=== PATIENT | female | born 1985 | race Hispanic/Latino ===

== ENCOUNTER 2017-10-13 17:13 | Emergency (ER) | payer SELFPAY ==
[2017-10-13 17:46] LABS: BASOPHILS % (AUTO) 0.5 % (0.0-5.0); HEMATOCRIT 42.4 % (36-48); LYMPHOCYTES % (AUTO) 15.6 % (21.0-51.0); MEAN CORPUSCULAR HEMOGLOBIN 28.8 pg (27.0-33.0); MEAN CORPUSCULAR HGB CONC 33.8 g/dL (32.0-36.0); MEAN CORPUSCULAR VOLUME 85.1 fL (79-99); NEUTROPHILS % (AUTO) 76.9 % (40.0-77.0); PLATELET COUNT (AUTO) 305 K/uL (130-400); RED BLOOD CELL COUNT(AUTO) 4.98 MIL/uL (4.00-5.50); RED CELL DISTRIBUTION WIDTH 13.6 % (11.0-15.5); WHITE BLOOD COUNT (AUTO) 13.9 K/uL (4.8-10.8)
[2017-10-13 17:46] LABS: APPEARANCE,URINE Clear (CLEAR); BILIRUBIN,URINE Small (NEGATIVE); COLOR,URINE Dark Yellow (YELLOW); GLUCOSE, URINE (UA) Negative (NEGATIVE); KETONES,URINE >=80 mg/dL (NEGATIVE); LEUKOCYTE ESTERASE ,URINE Trace (NEGATIVE); NITRATE,URINE Negative (NEGATIVE); OCCULT BLOOD,URINE Negative (NEGATIVE); PROTEIN,URINE POS 1+ (NEGATIVE)
[2017-10-13 17:47] LABS: HCG,QUAL RESULT NEGATIVE (NEGATIVE)
[2017-10-13] MEDS ORDERED: ONDANSETRON HCL 4 MG/2 ML VIAL ONE (17:49)
[2017-10-13] MEDS ORDERED: DICYCLOMINE HCL 10 MG/ML 2ML AMP IM ONE (17:49)
[2017-10-13] MEDS ORDERED: KETOROLAC TROMETHAMINE 30MG/ML ONE (17:50)
[2017-10-13 17:55] LABS: CREATININE 0.8 mg/dL (0.5-1.5); POTASSIUM 3.7 mmol/L (3.5-5.1)
[2017-10-13 18:01] LABS: ALBUMIN 4.1 g/dL (3.5-5.0); BILIRUBIN,TOTAL 0.7 mg/dL (0.2-1.0); TOTAL PROTEIN, SERUM 9.2 g/dL (6.0-8.3)
[2017-10-13 18:02] LABS: BACTERIA,URINE Few /HPF (None Seen); MUCUS,URINE Few LPF (None Seen); RBC,URINE None Seen /HPF (0-1)
[2017-10-13] MEDS ORDERED: LIDOCAINE HCL 2% VISCOUS 15 ML UDCUP ONE (19:03)
[2017-10-13] MEDS ORDERED: MAG HYDROX/AL HYDROX/SIMETH ES 30 ML SUSP UDCUP ONE (19:03)
[2017-10-13] MEDS ORDERED: IOHEXOL-350 75 ML VIAL IV ONE (19:42)
== END 2017-10-13 21:13 | disposition home or self-care (01) ==
LOC: EDH 17:13
DX: K29.00 Acute gastritis without bleeding (principal); E11.9 Type 2 diabetes mellitus without complications; Z72.0 Tobacco use
CPT/HCPCS: 36415; 74177; 76705; 80053; 81001; 81025; 82948; 83690; 85025; 87804 ×2; 96372; 96374; 96375; 99285; J0500; J1885; J2405; Q9967

== ENCOUNTER 2018-06-17 13:50 | Inpatient (IN) | payer OTHER ==
[~2018-06-17] VITALS: Ht 167.6 cm; Wt 107.1 kg
[2018-06-17 14:22] LABS: BASOPHILS % (AUTO) 0.3 % (0.0-5.0); HEMATOCRIT 39.8 % (36-48); LYMPHOCYTES % (AUTO) 3.8 % (21.0-51.0); MEAN CORPUSCULAR HEMOGLOBIN 29.1 pg (27.0-33.0); MEAN CORPUSCULAR HGB CONC 34.1 g/dL (32.0-36.0); MEAN CORPUSCULAR VOLUME 85.4 fL (79-99); MONOCYTES % (AUTO) 7.8 % (3.0-13.0); NEUTROPHILS % (AUTO) 88.1 % (40.0-77.0); PLATELET COUNT (AUTO) 186 K/uL (130-400); RED BLOOD CELL COUNT(AUTO) 4.65 MIL/uL (4.00-5.50); WHITE BLOOD COUNT (AUTO) 13.1 K/uL (4.8-10.8)
[2018-06-17] MEDS ORDERED: SODIUM CHLORIDE 0.9% 1000ML 2,000 ML IV ONE (14:25)
[2018-06-17 14:39] LABS: ALBUMIN 3.1 g/dL (3.5-5.0); BILIRUBIN,DIRECT 0.3 mg/dL (0.0-0.3); BILIRUBIN,TOTAL 0.8 mg/dL (0.2-1.0); CREATININE 1.7 mg/dL (0.5-1.5); POTASSIUM 3.6 mmol/L (3.5-5.1); TOTAL PROTEIN, SERUM 8.7 g/dL (6.0-8.3)
[2018-06-17] MEDS ORDERED: SODIUM CHLORIDE 0.9% 100 ML IV ONE (14:41)
[2018-06-17 14:57] LABS: BILIRUBIN,URINE Negative (NEGATIVE); COLOR,URINE Dark Yellow (YELLOW); GLUCOSE, URINE (UA) >=1000 mg/dL (NEGATIVE); KETONES,URINE >=80 mg/dL (NEGATIVE); LEUKOCYTE ESTERASE ,URINE Small (NEGATIVE); NITRATE,URINE Negative (NEGATIVE); OCCULT BLOOD,URINE Moderate (NEGATIVE); PROTEIN,URINE POS 2+ (NEGATIVE)
[2018-06-17 14:58] LABS: HCG,QUAL RESULT NEGATIVE (NEGATIVE)
[2018-06-17 14:59] LABS: APPEARANCE,URINE Turbid (CLEAR)
[2018-06-17 15:17] LABS: BACTERIA,URINE Moderate /HPF (None Seen); MUCUS,URINE Moderate LPF (None Seen); SQUAMOUS EPITHELIAL CELL,UR 30-50 /HPF (0-2); TRANSITIONAL EPI CELLS,URINE Few /HPF (None Seen); WBC,URINE 26-50 /HPF (0-1)
[2018-06-17] MEDS ORDERED: SODIUM CHLORIDE 0.9% 1000ML 1,000 ML IV ONE ×3 (16:04→23:32)
[2018-06-17] MEDS ORDERED: INSULIN HUMULIN R 100 UNIT/ML 3ML ONE ×3 (16:05→23:47)
[2018-06-17] MEDS ORDERED: ONDANSETRON HCL 4 MG/2 ML VIAL ONE (16:18)
[2018-06-17] MEDS ORDERED: ENOXAPARIN SODIUM 30 MG/0.3 ML SQ SCH (16:34)
[2018-06-17] MEDS ORDERED: ONDANSETRON HCL 4 MG/2 ML VIAL IVP PRN (16:45)
[2018-06-17] MEDS ORDERED: ACETAMINOPHEN EXTRA STRENGTH 500 MG TABLET ONE (16:45)
[2018-06-17] MEDS ORDERED: CEFTRIAXONE SODIUM 2 GM VIAL IVP SCH (17:00)
[2018-06-17] MEDS ORDERED: IBUPROFEN 600 MG TABLET ONE (17:59)
[2018-06-17] MEDS: FAMOTIDINE/PF 20 MG/2 ML VIAL IV SCH (21:00)
[2018-06-17] MEDS ORDERED: FAMOTIDINE/PF 20 MG/2 ML VIAL IV ONE (23:55)
[2018-06-17] MEDS ORDERED: ENOXAPARIN SODIUM 30 MG/0.3 ML SQ ONE (23:55)
[2018-06-18] MEDS ORDERED: ACETAMINOPHEN 325 MG TAB ONE ×2 (06:22→11:58)
[2018-06-18 06:44] LABS: BASOPHILS % (AUTO) 0.3 % (0.0-5.0); EOSINOPHILS % (AUTO) 0.1 % (0.0-8.0); HEMATOCRIT 33.6 % (36-48); LYMPHOCYTES % (AUTO) 4.6 % (21.0-51.0); MEAN CORPUSCULAR HEMOGLOBIN 29.1 pg (27.0-33.0); MEAN CORPUSCULAR HGB CONC 34.1 g/dL (32.0-36.0); MEAN CORPUSCULAR VOLUME 85.4 fL (79-99); MONOCYTES % (AUTO) 8.6 % (3.0-13.0); NEUTROPHILS % (AUTO) 86.4 % (40.0-77.0); PLATELET COUNT (AUTO) 157 K/uL (130-400); RED BLOOD CELL COUNT(AUTO) 3.94 MIL/uL (4.00-5.50); RED CELL DISTRIBUTION WIDTH 14.1 % (11.0-15.5); WHITE BLOOD COUNT (AUTO) 10.3 K/uL (4.8-10.8)
[2018-06-18 06:59] LABS: CREATININE 1.2 mg/dL (0.5-1.5); POTASSIUM 3.3 mmol/L (3.5-5.1)
[2018-06-18 07:05] LABS: ALBUMIN 2.3 g/dL (3.5-5.0); BILIRUBIN,TOTAL 0.5 mg/dL (0.2-1.0); TOTAL PROTEIN, SERUM 7.1 g/dL (6.0-8.3)
[2018-06-18] MEDS: INSULIN HUMULIN R 100 UNIT/ML 3ML SQ SCH ×4 (07:30→21:10)
[2018-06-18] MEDS ORDERED: INSULIN HUMULIN R 100 UNIT/ML 3ML ONE (08:30)
[2018-06-18] MEDS ORDERED: FAMOTIDINE/PF 20 MG/2 ML VIAL IV ONE (11:39)
[2018-06-18 14:29] VITALS: BP 128/62
[2018-06-18] MEDS: SODIUM CHLORIDE 0.9% 1000ML 1,000 ML IV SCH ×2 (15:57→23:29)
[2018-06-18] MEDS: FAMOTIDINE/PF 20 MG/2 ML VIAL IV SCH ×2 (15:58→19:47)
[2018-06-18 16:26] VITALS: BP 112/64
[2018-06-18] MEDS ORDERED: CEFTRIAXONE SODIUM 1 GM IVP SCH ×2 (16:45→21:00)
[2018-06-18] MEDS ORDERED: POTASSIUM CHLORIDE 20MEQ/100ML 100 ML IV PRN ×2 (17:15)
[2018-06-18] MEDS ORDERED: POTASSIUM CHLORIDE 10% ELIXIR 20 MEQ/15 ML UDCUP PO PRN (17:15)
[2018-06-18] MEDS ORDERED: LIDOCAINE HCL-MPF 1% 2ML VIAL IVP PRN ×2 (17:15)
[2018-06-18] MEDS: POTASSIUM CHLORIDE 20 MEQ ERTAB PO PRN ×2 (17:59→20:01)
[2018-06-18 19:45] VITALS: BP 120/52
[2018-06-18] MEDS: ENOXAPARIN SODIUM 30 MG/0.3 ML SQ SCH (19:47)
[2018-06-18] MEDS: ACETAMINOPHEN 325 MG TAB PO PRN (20:01)
[2018-06-18] MEDS: INSULIN GLARGINE 100 UNITS/ML 10 ML VIAL SQ SCH (21:09)
[2018-06-18 23:15] VITALS: BP 116/54
[2018-06-19 03:58] VITALS: BP 110/62
[2018-06-19 04:40] LABS: HEMATOCRIT 31.2 % (36-48); MEAN CORPUSCULAR HEMOGLOBIN 30.1 pg (27.0-33.0); MEAN CORPUSCULAR HGB CONC 35.5 g/dL (32.0-36.0); MEAN CORPUSCULAR VOLUME 84.8 fL (79-99); PLATELET COUNT (AUTO) 150 K/uL (130-400); RED BLOOD CELL COUNT(AUTO) 3.68 MIL/uL (4.00-5.50); RED CELL DISTRIBUTION WIDTH 13.8 % (11.0-15.5); WHITE BLOOD COUNT (AUTO) 5.9 K/uL (4.8-10.8)
[2018-06-19 05:03] LABS: CREATININE 0.9 mg/dL (0.5-1.5); MAGNESIUM 1.8 mg/dL (1.80-2.40); PHOSPHORUS 1.7 mg/dL (2.5-4.9); POTASSIUM 3.3 mmol/L (3.5-5.1)
[2018-06-19] MEDS: SODIUM CHLORIDE 0.9% 1000ML 1,000 ML IV SCH ×3 (05:45→21:13)
[2018-06-19] MEDS: INSULIN HUMULIN R 100 UNIT/ML 3ML SQ SCH ×4 (06:00→20:52)
[2018-06-19] MEDS: POTASSIUM CHLORIDE 20 MEQ ERTAB PO PRN ×2 (06:19→10:10)
[2018-06-19 08:20] VITALS: BP 130/70
[2018-06-19 10:03] LABS: HEMOGLOBIN A1C 11.6 % (4.0-6.0)
[2018-06-19] MEDS: FAMOTIDINE/PF 20 MG/2 ML VIAL IV SCH ×2 (10:09→21:13)
[2018-06-19] MEDS: INSULIN LISPRO 100 UNIT/ML 3ML SQ SCH ×3 (10:09→18:19)
[2018-06-19] MEDS: ENOXAPARIN SODIUM 30 MG/0.3 ML SQ SCH (10:11)
[2018-06-19] MEDS: ACETAMINOPHEN 325 MG TAB PO PRN ×2 (10:14→18:22)
[2018-06-19] MEDS: CEFTRIAXONE SODIUM 1 GM IVP SCH ×2 (10:14→21:13)
[2018-06-19] MEDS: MAGNESIUM 2GM PREMIX 50ML 50 ML IV SCH (10:15)
[2018-06-19 11:59] VITALS: BP 135/75
[2018-06-19] MEDS: METRONIDAZOLE 500 MG TABLET PO SCH ×3 (13:00→18:23)
--- NOTE | 2018-06-19 13:45 | NUR ---
DCP CM met with pt discussed dc plans. Pt is independent prior to admission, lives at home w/mother. Denies any equipments/services. Pt feels safe to go back home, still drives and works, mother able to assist with transportation and needs as necessary. Pt is a self pay, C assisting, insurance covers only Dr's visits, given community resources. DC plan to home once stable. CM to cont to follow up. Addendum: 06/19/18 at 1349 by FATMATA CHAVEZ LVN CM Amended: Links added.
[2018-06-19] MEDS ORDERED: POTASSIUM CHLORIDE 20 MEQ ERTAB PO ONE ×2 (14:00→18:00)
[2018-06-19 16:23] VITALS: BP 135/83
[2018-06-19 20:14] VITALS: BP 139/82
[2018-06-19] MEDS: INSULIN GLARGINE 100 UNITS/ML 10 ML VIAL SQ SCH (21:19)
[2018-06-19 23:30] VITALS: BP 123/74
[2018-06-20] MEDS: METRONIDAZOLE 500 MG TABLET PO SCH ×4 (00:45→18:50)
[2018-06-20 03:50] VITALS: BP 129/85
[2018-06-20 05:00] LABS: MEAN CORPUSCULAR HEMOGLOBIN 28.9 pg (27.0-33.0); MEAN CORPUSCULAR HGB CONC 34.1 g/dL (32.0-36.0); MEAN CORPUSCULAR VOLUME 84.9 fL (79-99); PLATELET COUNT (AUTO) 179 K/uL (130-400); RED BLOOD CELL COUNT(AUTO) 3.65 MIL/uL (4.00-5.50); RED CELL DISTRIBUTION WIDTH 14.2 % (11.0-15.5); WHITE BLOOD COUNT (AUTO) 5.6 K/uL (4.8-10.8)
[2018-06-20 05:05] LABS: CREATININE 0.8 mg/dL (0.5-1.5); MAGNESIUM 1.6 mg/dL (1.80-2.40); POTASSIUM 3.9 mmol/L (3.5-5.1)
[2018-06-20] MEDS: SODIUM CHLORIDE 0.9% 1000ML 1,000 ML IV SCH ×3 (06:20→15:46)
[2018-06-20] MEDS: ACETAMINOPHEN 325 MG TAB PO PRN ×2 (06:25→18:51)
[2018-06-20] MEDS: INSULIN LISPRO 100 UNIT/ML 3ML SQ SCH ×3 (06:28→17:00)
[2018-06-20] MEDS: INSULIN HUMULIN R 100 UNIT/ML 3ML SQ SCH ×4 (06:29→21:00)
[2018-06-20 08:03] VITALS: BP 134/77
[2018-06-20] MEDS: FAMOTIDINE/PF 20 MG/2 ML VIAL IV SCH ×2 (10:26→21:02)
[2018-06-20] MEDS: CEFTRIAXONE SODIUM 1 GM IVP SCH (10:26)
[2018-06-20] MEDS: ENOXAPARIN SODIUM 30 MG/0.3 ML SQ SCH (10:27)
[2018-06-20] MEDS: MAGNESIUM 2GM PREMIX 50ML 50 ML IV SCH (10:27)
[2018-06-20 11:23] VITALS: BP 125/70
[2018-06-20] MEDS ORDERED: MEROPENEM 500 MG VIAL IVP SCH (15:15)
[2018-06-20] MEDS ORDERED: CEFAZOLIN SODIUM 1 GM VIAL IVP SCH (15:30)
[2018-06-20 16:44] VITALS: BP 150/100
[2018-06-20] MEDS: DOXYCYCLINE 100MG+NS 250ML 250 ML IV SCH (18:50)
[2018-06-20 18:51] VITALS: BP 137/77
[2018-06-20] MEDS: INSULIN GLARGINE 100 UNITS/ML 10 ML VIAL SQ SCH (21:09)
[2018-06-21] VITALS: BP 118/83
[2018-06-21] MEDS: METRONIDAZOLE 500 MG TABLET PO SCH ×3 (00:12→13:06)
[2018-06-21 04:00] VITALS: BP 134/94
[2018-06-21 04:40] LABS: BASOPHILS % (AUTO) 0.5 % (0.0-5.0); EOSINOPHILS % (AUTO) 0.6 % (0.0-8.0); HEMATOCRIT 31.8 % (36-48); LYMPHOCYTES % (AUTO) 18.1 % (21.0-51.0); MEAN CORPUSCULAR HEMOGLOBIN 28.8 pg (27.0-33.0); MEAN CORPUSCULAR HGB CONC 34.2 g/dL (32.0-36.0); MEAN CORPUSCULAR VOLUME 84.4 fL (79-99); MONOCYTES % (AUTO) 24.1 % (3.0-13.0); NEUTROPHILS % (AUTO) 56.7 % (40.0-77.0); PLATELET COUNT (AUTO) 213 K/uL (130-400); RED BLOOD CELL COUNT(AUTO) 3.77 MIL/uL (4.00-5.50); RED CELL DISTRIBUTION WIDTH 14.2 % (11.0-15.5); WHITE BLOOD COUNT (AUTO) 6.2 K/uL (4.8-10.8)
[2018-06-21 04:54] LABS: CREATININE 0.8 mg/dL (0.5-1.5); MAGNESIUM 1.4 mg/dL (1.80-2.40); POTASSIUM 3.2 mmol/L (3.5-5.1)
[2018-06-21] MEDS: SODIUM CHLORIDE 0.9% 1000ML 1,000 ML IV SCH ×3 (05:52→18:35)
[2018-06-21] MEDS: DOXYCYCLINE 100MG+NS 250ML 250 ML IV SCH (05:53)
[2018-06-21] MEDS: CEFTRIAXONE SODIUM 1 GM IVP SCH (05:53)
[2018-06-21] MEDS: INSULIN HUMULIN R 100 UNIT/ML 3ML SQ SCH ×4 (05:58→21:00)
[2018-06-21] MEDS: INSULIN LISPRO 100 UNIT/ML 3ML SQ SCH ×3 (06:03→17:00)
[2018-06-21 08:00] VITALS: BP 149/72
[2018-06-21] MEDS: FAMOTIDINE/PF 20 MG/2 ML VIAL IV SCH (10:55)
[2018-06-21] MEDS: OSELTAMIVIR PHOSPHATE 75 MG CAP PO SCH (10:55)
[2018-06-21] MEDS: ENOXAPARIN SODIUM 30 MG/0.3 ML SQ SCH (10:56)
[2018-06-21] MEDS: MAGNESIUM 2GM PREMIX 50ML 50 ML IV SCH (10:56)
[2018-06-21] MEDS: POTASSIUM CHLORIDE 20 MEQ ERTAB PO PRN ×3 (10:57→17:02)
[2018-06-21 11:36] VITALS: BP 138/86
[2018-06-21 16:00] VITALS: BP 138/90
[2018-06-21 20:00] VITALS: BP 141/94
[2018-06-22 00:10] VITALS: BP 142/83
[2018-06-22] MEDS: METRONIDAZOLE 500 MG TABLET PO SCH ×3 (00:36→13:00)
[2018-06-22] MEDS: FAMOTIDINE/PF 20 MG/2 ML VIAL IV SCH ×2 (00:36→08:50)
[2018-06-22] MEDS: OSELTAMIVIR PHOSPHATE 75 MG CAP PO SCH ×2 (00:37→08:50)
[2018-06-22] MEDS: INSULIN GLARGINE 100 UNITS/ML 10 ML VIAL SQ SCH (00:44)
[2018-06-22] MEDS: SODIUM CHLORIDE 0.9% 1000ML 1,000 ML IV SCH ×2 (00:56→05:31)
[2018-06-22 04:00] VITALS: BP 139/87
[2018-06-22 04:54] LABS: BASOPHILS % (AUTO) 0.6 % (0.0-5.0); EOSINOPHILS % (AUTO) 0.5 % (0.0-8.0); HEMATOCRIT 32.2 % (36-48); LYMPHOCYTES % (AUTO) 20.3 % (21.0-51.0); MEAN CORPUSCULAR HEMOGLOBIN 28.8 pg (27.0-33.0); MEAN CORPUSCULAR VOLUME 84.9 fL (79-99); MONOCYTES % (AUTO) 21.6 % (3.0-13.0); PLATELET COUNT (AUTO) 269 K/uL (130-400); RED CELL DISTRIBUTION WIDTH 14.4 % (11.0-15.5); WHITE BLOOD COUNT (AUTO) 6.5 K/uL (4.8-10.8)
[2018-06-22 05:15] LABS: CREATININE 0.7 mg/dL (0.5-1.5); MAGNESIUM 1.6 mg/dL (1.80-2.40); POTASSIUM 3.3 mmol/L (3.5-5.1)
[2018-06-22] MEDS: CEFTRIAXONE SODIUM 1 GM IVP SCH (05:32)
[2018-06-22] MEDS: INSULIN HUMULIN R 100 UNIT/ML 3ML SQ SCH ×2 (05:58→11:30)
[2018-06-22] MEDS: INSULIN LISPRO 100 UNIT/ML 3ML SQ SCH ×2 (06:11→12:44)
[2018-06-22 08:11] VITALS: BP 137/80
[2018-06-22] MEDS: ENOXAPARIN SODIUM 30 MG/0.3 ML SQ SCH (08:50)
[2018-06-22] MEDS: POTASSIUM CHLORIDE 20 MEQ ERTAB PO PRN ×2 (08:50→08:51)
[2018-06-22] MEDS: MAGNESIUM 2GM PREMIX 50ML 50 ML IV SCH (08:53)
--- NOTE | 2018-06-22 08:57 | NUR ---
Nutrition Intervention: Nutrition consult for diabetic diet teaching. Pt. admitted with Dx of Pyelonephritis, AGE. Pt. on 75gm CCD full Liquids. Pt. reports good p.o. intake. Pt. C/o Nausea- on medication Zofran for upper GI distress. Labs reviewed(Alb 2.0, BG 153, HgbA1C 11.6%). LBM: 06/21/18. SR-21, elastic. BMI: 38.7, obesity grade 2. Pt. educated on Diabetic diet and provided with education material. Pt. verbalized understanding. Recommendations: 1) Rec. advance diet as tolerated to 75gm CCD Soft diet. 2) Rec. 30ml ProMod TID with meals. 3) Diabetic diet education given to patient. 4) Continue to monitor pt's nutritional status. 5) Consult RD as nutrition concerns arise. Addendum: 06/22/18 at [address] Amended: Links added.
[2018-06-22] MEDS ORDERED: POTASSIUM CHLORIDE 20 MEQ ERTAB PO SCH ×2 (09:30→15:00)
[2018-06-22 12:00] VITALS: BP 131/86
--- NOTE | 2018-06-22 15:45 | NUR ---
PT D/C EDUCATION GIVEN USING TEACH BACK METHOD SATISFACTORILY IV REMOVED, CATHETER INTACT RX GIVEN PT DENIES SOB OR CHEST PAIN TOLERATED MEALS WITH NO ISSUES NO NAUSEA OR VOMITING
[2018-06-25 15:18] LABS: ROCKY MT SPOTTED FEVER IGG <1:64 (Neg:<1:64); TYPHUS FEVER AB IGG <1:64 (Neg:<1:64)
== END 2018-06-22 16:53 | disposition home or self-care (01) | DRG 872 ==
LOC: EDH 13:50 → EDHIP 16:14 → OBSVTOIN 16:14 → 4AH 06-18 13:46
PROVIDERS: ADMIT Family Medicine; ATTEND Family Medicine
DX: A41.51 Sepsis due to Escherichia coli [E. coli] (principal); E87.1 Hypo-osmolality and hyponatremia; N17.9 Acute kidney failure, unspecified; N12 Tubulo-interstitial nephritis, not specified as acute or chronic; D64.9 Anemia, unspecified; E11.65 Type 2 diabetes mellitus with hyperglycemia; E66.01 Morbid (severe) obesity due to excess calories; E83.42 Hypomagnesemia; E86.1 Hypovolemia; E87.6 Hypokalemia; F12.90 Cannabis use, unspecified, uncomplicated; F17.200 Nicotine dependence, unspecified, uncomplicated; J10.1 Influenza due to other identified influenza virus with other respiratory manifestations; I10 Essential (primary) hypertension; Z16.12 Extended spectrum beta lactamase (ESBL) resistance; Z68.38 Body mass index [BMI] 38.0-38.9, adult; Z83.3 Family history of diabetes mellitus; Z82.49 Family history of ischemic heart disease and other diseases of the circulatory system
CPT/HCPCS: 36415; 71250; 74176; 80048; 80053; 80076; 81001; 81025; 82040; 82150; 82948; 83036; 83605; 83690; 83735; 84100; 85025; 85027; 86757; 87040; 87077; 87088; 87186; 87804; 93005; A4218; G0378; J0690; J0696; J1650; J1815; J2405; J3475; J3490; J7030

== ENCOUNTER 2025-03-31 22:43 | Emergency (ER) | payer SELFPAY ==
[~2025-03-31] VITALS: Ht 160 cm; Wt 100.2 kg
--- NOTE | 2025-03-31 23:14 | EKG ---
[facility] Test Date: 2025-03-31 Test Time: 23:08:50 Pat Name: TRACY ADAMS Department: ED Room: Gender: F Skidder Runner: [id number] : 1985 Requested By: KIMBERLI HUSTON Order Number: [id number] Reading MD: Jere Nye Measurements Intervals [place] Rate: 85 P: 63 NH: 149 QRS: 28 QRSD: 90 T: 34 QT: 417 QTc: 496 Interpretive Statements Sinus rhythm Ventricular trigeminy Left atrial enlargement Compared to ECG 06/17/2018 14:18:41 Ventricular premature complex(es) now present Atrial abnormality now present Sinus tachycardia no longer present Electronically Signed On 04-01-2025 20:14:11 OTR [employer]ER [employer]UCK [employer] by Jere Nye Please click the below link to view image of tracing.
[2025-03-31 23:24] LABS: IMMATURE GRANULOCYTE ABSOLUTE 0.02 K/uL (0-1); NUCLEATED RED BLOOD CELLS 0.0 % (0.0-0.19); PLATELET COUNT (AUTO) 226 K/uL (130-400); RED BLOOD CELL COUNT(AUTO) 4.95 MIL/uL (4.00-5.50); RED CELL DISTRIBUTION WIDTH 13.4 % (11.0-15.5); WHITE BLOOD COUNT (AUTO) 5.3 K/uL (4.8-10.8)
[2025-03-31 23:34] LABS: CREATININE 0.8 mg/dL (0.5-1.0); GLOMERULAR FILTR. RATE CALC 96.0 mL/min (>90); GLUCOSE,RANDOM 350.0 mg/dL (70-105); SODIUM SERUM 134.0 mmol/L (136-145); UREA NITROGEN, BLOOD 9.0 mg/dL (7-18)
[2025-03-31 23:42] LABS: ASPARTATE AMINOTRANSFERASE 48.0 U/L (10-37); TOTAL PROTEIN, SERUM 8.0 g/dL (6.0-8.3)
--- NOTE | 2025-04-01 00:05 | NUR ---
ASSUMED PT CARE
[2025-04-01] MEDS: 0.9%NACL 1000ML 1,000 ML IV ONE (00:17)
--- NOTE | 2025-04-01 00:34 | HMCIMG ---
EXAM: CR Chest, 1 View. CLINICAL HISTORY: cough COMPARISON: None provided. FINDINGS: LUNGS: There is no mass, infiltrate, or acute pulmonary abnormality. However, prominent bronchovascular markings may suggest a possible component of bronchiolitis or congestion. PLEURAL SPACES: No pleural effusion or pneumothorax. MEDIASTINUM: Cardiac size and mediastinal contours unremarkable, within technical limitations. BONES: No aggressive-appearing osseous lesion seen. IMPRESSION: No acute cardiopulmonary pathology is evident. Prominent bronchovascular markings may suggest a possible component of bronchiolitis or congestion. /[place]
--- NOTE | 2025-04-01 00:38 | ERN ---
ED Note History of Present Illness Stated Complaint: C/O HEADACHE, ABD PAIN W/NAUSEA, DRY COUGH,SOB Chief Complaint: Multiple Complaints Time Seen by MD: 22:47 Time Seen by Midlevel: 22:47 Dictation: The patient is a 32-year-old female with a history of diabetes who presents to the emergency department with multiple complaints. Patient reports headache, epigastric abdominal pain associated with nausea, dry cough, shortness of breath onset four days ago. Patient denies any fevers, denies any vomiting or diarrhea. Denies any head trauma or recent injury. Allergies: Coded Allergies: No Known Drug Allergies (Verified Allergy, Unknown, 06/17/18) Home Meds No Active Prescriptions or Reported Meds Past Medical History Past Medical History: Diabetes-Type II Surgical History: None LMP: Mar 31, 2025 RN Note Reviewed/Agreed w/PFSH: Yes Review of System Dictation Constitutional: Negative for fever,chills, and weight loss Eyes: Negative for injury, pain,redness, and discharge ENT: Negative for injury,pain or swelling Cardiovascular: Negative for chest pain, palpitations, and edema Respiratory: Negative for wheezing, positive for shortness of breath positive for cough Abdomen/GI: Negative for , vomiting, diarrhea, and constipation positive for abdominal pain, nausea Back: Negative for injury and pain : Negative for injury, bleeding and discharge MS/Extremity: Negative for injury and deformity Skin: Negative for rash, and discoloration Neuro: Negative for weakness, numbness, tingling, and seizure positive for headache Psych: Negative for suicide ideation, homicidal ideation, and hallucinations Initial Vital Sign VS Vital Signs Date Time Temp Pulse Resp B/P (MAP) Pulse Ox O2 Delivery O2 Flow Rate FiO2 03/31/25 22:45 98.2 81 20 166/84 99 Room Air 04/01/25 00:34 0 21 Physical Exam Dictation Vital Signs reviewed General Appearance: Alert, oriented x 3, no acute distress, well developed, nourished. Head and Face: non-traumatic. Eyes: PERRL, pink conjunctivas, eyelid no trauma, anterior chamber with arcus senilis. Ears: Pinnas intact and no signs of trauma or erythema ear canals clear and no discharge TM no erythema Nose: No discharge, no bleeding. Oropharynx: Mouth normal, tongue pink. pharynx clear,no erythema, tonsils no exudates, no abscesses noted, mucous membrane moist Neck: Supple, non-tender, no thyromegaly, no masses, no JVD, no bruits Breast:Deferred Chest:No tenderness, no crepitus, no paradoxical movement, no retractions Lungs:Clear, well-ventilated, symmetric, no rales, no wheezing, no rhonchi, no stridor, good breath sounds bilaterally Heart: Regular rate, regular rhythm, no murmur, no gallops Vascular: no peripheral edema, Abdomen: Soft, positive bowel sounds, nondistended, no guarding, nontender, no rebound, no masses no hepatomegaly, no splenomegaly, no Ospina's sign, no hernias. Rectal: Deferred Genital: Deferred Neurological: Normal speech, motor function intact, sensory function intact Musculoskeletal: Neck nontender, full range of motion, back nontender, full range of motion, Extremities: nontender, full range of motion Skin: Color pink, dry, no turgor, no rash, no lacerations, no abrasions, no contusions. Lymphatic: Deferred Results (Laboratory/Radiology) Laboratory/Radiology Laboratory Tests Test 03/31/25 00:05 03/31/25 23:17 04/01/25 02:16 Influenza Type A Antigen Negative For Type A Influenza Type B Antigen Negative For Type B SARS-CoV-2 Antigen (Rapid) PRESUMPTIVE NEGATIVE White Blood Count 5.3 K/uL (4.8-10.8) Red Blood Count 4.95 MIL/uL (4.00-5.50) Hemoglobin 14.3 g/dL (12.0-16.0) Hematocrit 43.4 % (36-48) Mean Corpuscular Volume 87.7 fL (79-99) Mean Corpuscular Hemoglobin 28.9 pg (27.0-33.0) Mean Corpuscular Hemoglobin Concent 32.9 g/dL (32.0-36.0) Red Cell Distribution Width 13.4 % (11.0-15.5) Platelet Count 226 K/uL (130-400) Mean Platelet Volume 9.9 fL (7.5-10.5) Immature Granulocyte % (Auto) 0.4 % (0-1) Neutrophils (%) (Auto) 69.5 % (40.0-77.0) Lymphocytes (%) (Auto) 23.4 % (21.0-51.0) Monocytes (%) (Auto) 5.9 % (3.0-13.0) Eosinophils (%) (Auto) 0.6 % (0.0-8.0) Basophils (%) (Auto) 0.2 % (0.0-5.0) Neutrophils # (Auto) 3.7 K/uL (1.8-7.7) Lymphocytes # (Auto) 1.2 K/uL (1.0-4.8) Monocytes # (Auto) 0.3 K/uL (0.1-1.0) Eosinophils # (Auto) 0.03 K/uL (0.00-0.70) Basophils # (Auto) 0.01 K/uL (0.00-0.20) Absolute Immature Granulocyte (auto 0.02 K/uL (0-1) Nucleated Red Blood Cells 0.0 % (0.0-0.19) Sodium Level 134 mmol/L (136-145) L Potassium Level 3.8 mmol/L (3.5-5.1) Chloride Level 97 mmol/L (101-111) L Carbon Dioxide Level 28 mmol/L (21-32) Blood Urea Nitrogen 9 mg/dL (7-18) Creatinine 0.8 mg/dL (0.5-1.0) Glomerular Filtration Rate Calc 96 mL/min (>90) Random Glucose 350 mg/dL (70-105) H Total Calcium 8.8 mg/dL (8.5-10.1) Total Bilirubin 0.3 mg/dL (0.2-1.0) Direct Bilirubin 0.1 mg/dL (0.0-0.3) Aspartate Amino Transf (AST/SGOT) 48 U/L (10-37) H Alanine Aminotransferase (ALT/SGPT) 112 U/L (12-78) H Alkaline Phosphatase 62 U/L (50-136) Troponin I High Sensitivity 11 ng/L (4-50) Total Protein 8.0 g/dL (6.0-8.3) Albumin 3.4 g/dL (3.5-5.0) L Lipase 31 U/L (16-77) Whole Blood Glucose 278 MG/DL (70-110) H REASON: cough ORDERING PHYSICIAN: KIMBERLI HUSTON PROCEDURE: CXR1VW - CHEST 1VW EXAM: CR Chest, 1 View. CLINICAL HISTORY: cough COMPARISON: None provided. FINDINGS: LUNGS: There is no mass, infiltrate, or acute pulmonary abnormality. However, prominent bronchovascular markings may suggest a possible component of bronchiolitis or congestion. PLEURAL SPACES: No pleural effusion or pneumothorax. MEDIASTINUM: Cardiac size and mediastinal contours unremarkable, within technical limitations. BONES: No aggressive-appearing osseous lesion seen. IMPRESSION: No acute cardiopulmonary pathology is evident. Prominent bronchovascular markings may suggest a possible component of bronchiolitis or congestion. /[place] Labs Reviewed?: Yes EKG: (+) rhythm (Sinus rhythm) EKG Comment: Date:03/31/2025 Time:2307 Ventricular rate:85 SD interval:149 QRS duration:90 QT/QTc:417/496 EKG interpretation: Sinus rhythm ventricular trigeminy Reviewed by ED Attending, no STEMI ED Course ED Course Orders Procedure Category Date Status Time Cbc With Differential LAB 03/31/25 Complete 22:59 Troponin I High LAB 03/31/25 Complete Sensitivity 22:59 ,Urine Test LAB 03/31/25 Logged 22:59 Urinalysis Profile LAB 03/31/25 Logged 22:59 12 Lead Ekg Tracing- EKG 03/31/25 Complete Technical 22:59 0.9%Nacl 1000ml (Ns PHA 03/31/25 Complete 1000ml) 23:00 Chest 1vw RAD 03/31/25 Resulted 22:59 Lipase LAB 03/31/25 Complete 22:59 Basic Metabolic Panel LAB 03/31/25 Complete 22:59 Ondansetron 4mg Inj PHA 03/31/25 Complete (Zofran 4mg Inj) 23:00 Pantoprazole 40mg Inj PHA 03/31/25 Complete (Protonix 40mg Inj 23:00 Covid19 (Sars Antigen LAB 03/31/25 Complete Rapid) 22:59 Influenza Type A & B, LAB 03/31/25 Complete Rapid 22:59 Hepatic Function Panel LAB 03/31/25 Complete 22:59 Acetaminophen 500mg PHA 03/31/25 Complete Tab (Tylenol 500mg T 23:00 Us Abdominal Ruq\Ltd US 04/01/25 Taken 00:34 Insulin Regular, PHA 04/01/25 Complete Human 3ml (Humulin R 01:00 Current Medications Medications (Trade) Dose Ordered Sig/[place] Route PRN Reason Start Time Stop Time Status Last Admin Dose Admin Acetaminophen (TYLenol 500MG TAB) 1,000 mg ONCE ONCE PO 03/31/25 23:00 03/31/25 23:13 DC 04/01/25 00:19 Insulin Human Regular (humuLIN R 100 UNIT/ML 3ML) 7 unit ONCE ONCE SQ 04/01/25 01:00 04/01/25 01:01 DC 04/01/25 01:13 Ondansetron HCl (zoFRAN 4MG INJ) 4 mg ONCE ONCE IVP 03/31/25 23:00 03/31/25 23:13 DC 04/01/25 00:17 Pantoprazole Sodium (PROTonix 40MG INJ) 40 mg ONCE ONCE IVP 03/31/25 23:00 03/31/25 23:13 DC 04/01/25 00:17 Sodium Chloride 1,000 ml @ 0 mls/hr ONCE ONCE IV 03/31/25 23:00 03/31/25 23:13 DC 04/01/25 00:17 Vital Signs Date Time Temp Pulse Resp B/P (MAP) Pulse Ox O2 Delivery O2 Flow Rate FiO2 04/01/25 00:34 98.4 79 18 170/100 99 Room Air* 0 21 03/31/25 22:45 98.2 81 20 166/84 99 Room Air Medical Decision Making MDM The patient is a 32-year-old female with a history of diabetes who presents to the emergency department with multiple complaints. Patient reports headache, epigastric abdominal pain associated with nausea, dry cough, shortness of breath onset four days ago. Patient denies any fevers, denies any vomiting or diarrhea. Denies any head trauma or recent injury. CBC showed no leukocytosis, no anemia, chemistry showed mild hyperglycemia, hypochloremia, a gap of nine no DKA, negative lipase, slightly elevated liver enzymes. Serology was negative. Ultrasound did not reveal any signs of gallstones. Patient with a fatty liver. On physical exam patient is in no acute distress, nontoxic appearance, stable vital signs, neurologically intact, clear lung sounds. Patient's symptoms appear to be viral in nature. Labs and imaging discussed with the patient who agrees to be discharged and follow up with PCP. Patient with stable vital signs. Differential diagnosis: Pneumonia, gastroenteritis, viral illness, dehydration Need for hospitalization: Patient does not meet criteria for hospitalization. There are no social concerns with this patient. DX & DISP Disposition: Discharge Departure Impression: Primary Impression: Viral URI with cough Additional Impressions: Headache, Uncontrolled diabetes mellitus with hyperglycemia Condition: Stable Scripts Famotidine (Pepcid) 20 Mg Tablet 1 TAB PO BID for 30 Days, #60 TAB 0 Refills Prov: ROBLEKIMBERLI [facility] 04/01/25 Guaifenesin/Dextromethorphan (Robitussin Cough-Chest Dm Liq) 100 Mg-5 Mg/5 Ml Liquid 10 ML PO Q8H for 7 Days, #210 ML 0 Refills Prov: HUSTON,KIMBERLI [employer] 04/01/25 Additional Instructions: Your labs were unremarkable except your sugar was slightly elevated which we brought down with fluids and insulin. Your chest x-ray showed some inflammation but no pneumonia. Please follow up with your primary doctor in 1-2 days. If anything worsens please return to ER. FOLLOW-UP WITH PRIMARY CARE PROVIDER IN 1 TO 2 DAYS. TAKE MEDICATIONS DIREC TIFFANIE HERE IN THE EMERGENCY ROOM. OKAY TO CONTINUE HOME MEDICATIONS UNLESS OTHERWISE DISCUSSED DURING YOUR VISIT IN THE EMERGENCY ROOM TODAY. RETURN TO YOUR NEAREST EMERGENCY ROOM IF SYMPTOMS WORSEN OR IF THERE IS NO IMPROVEMENT. CALL 911 IF YOU NEED IMMEDIATE ASSISTANCE. TAKE TYLENOL [id number] NEEDED AND IF NO CONTRAINDICATIONS ARE PRESENT. INCREASE ORAL HYDRATION. A WOUND CULTURE OR URINE CULTURE WAS ORDERED HERE IN THE EMERGENCY ROOM DEPARTMENT PLEASE FOLLOW-UP WITH PRIMARY CARE PROVIDER AND ADVISE THEM TO GET REPEAT PORTS FROM OUR FACILITY. IF YOU HAD ANY SPENSER WRAP/SPLINTS THAT WERE APPLIED HERE, PLEASE DO NOT REMOVE THEM UNTIL YOU SEE YOUR PRIMARY CARE OR SPECIALTY. Referrals: SELF,REFERRAL (PCP) Time of Disposition: 02:50 I have reviewed the case, and I agree with, Diagnosis and Plan MARIA VICTORIA HUSTONLEN [facility] Apr 01, 2025 00:38
[2025-04-01 01:02] LABS: COVID19 (SARS ANTIGEN RAPID) PRESUMPTIVE NEGATIVE (NEGATIVE)
[2025-04-01 01:16] LABS: INFLUENZA TYPE A Negative For Type A (NEGATIVE); INFLUENZA TYPE B Negative For Type B (NEGATIVE)
--- NOTE | 2025-04-01 02:56 | HMCIMG ---
EXAM: US Abdomen, Right Upper Quadrant. CLINICAL HISTORY: Abdominal pain. TECHNIQUE: Right upper quadrant sonography performed with image documentation. COMPARISON: None provided. FINDINGS: LIVER: The liver is enlarged, measuring 19.9 cm. It shows increased echogenicity. No mass. GALLBLADDER: The gallbladder appears normal. No gallbladder wall thickening seen, its wall measures 3 mm. No gallstones are evident. COMMON BILE DUCT: No dilation. It measures 4 mm. PANCREAS: The visualized pancreas appears within normal limits. The distal pancreas is obscured by bowel gas. RIGHT KIDNEY: Unremarkable. Normal renal contours. No renal mass or calculus. No hydronephrosis. It measures 11.4 x 5 x 4.9 cm. IMPRESSION: No acute process. Normal appearance of the gallbladder. Hepatomegaly with moderate fatty change. /[place]
[2025-04-01 03:15] VITALS: BP 156/86; PULSE 85; RESP 18; TEMP 98.4; O2SAT 99
== END 2025-04-01 03:10 | disposition home or self-care (01) ==
LOC: EDH 22:43
DX: J06.9 Acute upper respiratory infection, unspecified (principal); B97.89 Other viral agents as the cause of diseases classified elsewhere; E11.65 Type 2 diabetes mellitus with hyperglycemia; R51.9 Headache, unspecified; Z20.822 Contact with and (suspected) exposure to COVID-19
CPT/HCPCS: 99284; 71045; 87426; 80076; 84484; 80048; 83690; 85025; 87804 ×2; 82948; 36415; 93005; 96374; 76705; 96361; 96375; 96372; J1815; J2405; J2470